=== PATIENT | male | born 1990 | race Two or more races ===

== ENCOUNTER 2024-12-31 15:45 | Emergency (ER) | payer MEDICAID, SELFPAY ==
[2024-12-31 15:46] VITALS: BMI 29.7
[2024-12-31 16:05] VITALS: BP 160/84; PULSE 80; RESP 18; TEMP 37.1; O2SAT 97
--- NOTE | 2024-12-31 16:25 | EDNOTE_ITS ---
ED Male Genitalurinary RME/HPI General Chief complaint: Urogenital-Male Stated complaint: PAIN WITH URINATION, SWELLING TO PENIS Time Seen by Provider: 12/31/24 16:22 Source: patient Arrival date/time: 12/31/24 15:45 34-year-old male with no known medical history presents to the emergency room with a chief complaint of a possible spider bite to the urethra x 1 hour ago Mode of arrival: ambulatory Limitations: no limitations Related Data Previous Rx's ?Medication ?Instructions ?Recorded amoxicillin 875 mg-potassium 1 tab PO BID 7 days #14 t abs 12/31/24 clavulanate 125 mg tablet Allergies Allergy/AdvReac Type Severity Reaction Status Date / Time No Known Allergies Allergy Verified 12/31/24 15:48 Review of Systems Review of Systems Systems Reviewed: All systems reviewed, normal except as documented Constitutional Constitutional: Reports system reviewed and no additional complaints, except as documented, Denies fatigue, Denies fever(s), Denies headache(s) and Denies weakness Eyes Eyes: Reports system reviewed and no additional complaints, except as documented, Denies blurry vision and Denies change in vision ENT Ears, Nose, Mouth, and Throat: Reports system reviewed and no additional complaints, except as documented, Denies otalgia, Denies headache(s), Denies nasal congestion, Denies throat swelling and Denies vertigo Cardiovascular Cardiovascular: Reports system reviewed and no additional complaints, except as documented, Denies chest pain, Denies dyspnea and Denies dyspnea on exertion Respiratory Respiratory: Reports system reviewed and no additional complaints, except as documented, Denies chest congestion, Denies cough, Denies dyspnea, Denies dyspnea on exertion and Denies wheezing Gastrointestinal Gastrointestinal: Reports system reviewed and no additional complaints, except as documented, Denies abdominal pain, Denies cramping, Denies nausea and Denies vomiting Genitourinary Genitourinary: Reports system reviewed and no additional complaints, except as documented, Denies dysuria and Denies hematuria Musculoskeletal Musculoskeletal: Reports system reviewed and no additional complaints, except as documented and Denies back pain Integumentary/Breasts Skin/Breast: Reports system reviewed and no additional complaints, except as documented and Denies wounds Neurologic Neurologic: Reports system reviewed and no additional complaints, except as documented, Denies confusion, Denies headache(s), Denies lack of coordination, Denies vertigo and Denies weakness Psychiatric Psychiatric: Reports system reviewed and no additional complaints, except as documented, Denies anxiety, Denies confusion, Denies depression, Denies paranoia, Denies suicidal ideation and Denies tactile hallucinations Endocrine Endocrine: Reports system reviewed and no additional complaints, except as documented and Denies fatigue Hematologic/Lymphatic Hematologic/Lymphatic: Reports system reviewed and no additional complaints, except as documented and Denies lymphadenopathy Allergic/Immunologic Allergic/Immunologic: Reports system reviewed and no additional complaints, except as documented, Denies throat swelling, Denies urticaria and Denies wheezing Past Medical History Social History SMOKING STATUS: Current some day smoker ED Exam General Limitations: Present no limitations General appearance: Present alert and in no apparent distress Head Head exam: Present atraumatic Eye Eye exam: Present normal appearance, PERRL and EOMI ENT ENT exam: Present normal exam, normal oropharynx and mucous membranes moist Neck Neck exam: Present normal inspection, full ROM and trachea midline Chest Chest inspection: Present normal inspection and symmetric chest wall rise Respiratory Respiratory exam: Present normal lung sounds bilaterally Cardiovascular Cardiovascular exam: Present regular rate, normal rhythm and normal heart sounds Abdominal Exam Abdominal exam: Present soft and normal bowel sounds Expanded Exam image: 2 1. No evidence of any erythema, cellulitis, warmth to the touch, or any evidence of any infection to the head of the penis Extremities Exam Extremities exam: Present normal inspection and full ROM Back Exam Back exam: Present normal inspection and full ROM Neurological Exam Neurological exam: Present alert, oriented X3 and CN II-XII intact Psychiatric Psychiatric exam: Present normal affect and normal mood Skin Skin exam: Present warm, dry, intact and normal color Course Quality Measures none Vital Signs Vital signs: Vital Signs Temperature 98.7 F 12/31/24 16:05 Pulse Rate 80 12/31/24 16:05 Respiratory Rate 18 12/31/24 16:05 Blood Pressure 160/84 H 12/31/24 16:05 Pulse Oximetry (%) 97 12/31/24 16:05 Oxygen Delivery Method Room Air 12/31/24 16:05 Urogenital - Male MDM Narrative MDM Narrative:: 34-year-old male with no known medical history presents to the emergency room with a chief complaint of a possible spider bite to the urethra x 1 hour ago Patient is hemodynamically stable and in no apparent distress. Patient is afebrile nontachycardic nontachypneic Physical examination shows no erythema no warmth or no evidence of any infection to the head of the penis. Patient states he does not feel anything at this time but states he found a spider inside his pants. Patient denies any dysuria or any other problems. Antibiotics were sent to the patient prophylactically. Patient was discharged and educated to follow-up with primary care provider in the next 24 to 48 hours and return to the emergency room for any evidence of worsening signs or symptoms Patient data External records reviewed:: [facility] previous records Clinical information provided by:: patient Social determinants that could affect healthcare access:: none Patient has the following chronic illnesses:: No chronic illness How is presenting disease/condition affected by chronic disease/condition?: no chronic disease Evaluation data The following diagnostics were reviewed and interpreted by me:: lab results and radiology exam(s) Lab and/or radiology exams considered but not ordered:: Labs and radiology exams considered and ordered Interpretation Summary: N/A Medications / Prescriptions Medications or Prescriptions considered but not ordered:: Rx given Medication administrations:: Rx given Consultations Consultation(s) initiated? (list below): No Diagnosis Urogenital Male Differential Diagnosis: other (Spider bite/insect bite/contact dermatitis/balanitis) Most likely diagnosis given after review of the tests above:: Spider bite Admission Indicated Admission indicated?: not indicated Admission Request Was there a request for admission?: No Disposition Plan Disposition Plan: Discharge Discharge Attestation Discharge Attestation: The patient and all family members were given an opportunity to ask questions and understood the discharge instructions. Discharge instructions specifically effects, indications for sooner follow up or return to the emergency department, and the expected course of current diagnosis. Patient condition: Stable Discharge Plan Plan Patient Disposition: HOME (Self Care) Discharge Disposition comment: Stable Prescriptions/Referrals Prescriptions/Med Rec: New amoxicillin-pot clavulanate 875-125 mg tablet 1 tab PO BID 7 Days Qty: 14 0RF Problem List Clinical Impression: Insect bite Patient/Caregiver Discharge Instructions Education Materials: ED Insect Bite Additional Instructions: Por favor, consulte con menjivar m?dico de cabecera en las pr?ximas 24 a 48 horas. Se enviaron antibi?ticos a menjivar farmacia; rec?jalos y t?melos seg?n lo indicado. Si observa cualquier evidencia de empeoramiento de los signos o s?ntomas, regrese a la nicki de emergencias de inmediato. Print Language: Guyanese Stand Alone Forms: [facility] Award Info., Work/School Release, Patient Portal Info Letter PA/SENIOR VICE PRESIDENT & GENERAL COUNSEL Supervising Physician PA/SENIOR VICE PRESIDENT & GENERAL COUNSEL Supervising Physician: Dr. Oconnor
== END 2024-12-31 17:00 | disposition home or self-care (01) ==
PROVIDERS: Emergency Provider Family Medicine
DX: S30.862A Insect bite (nonvenomous) of penis, initial encounter (principal); W57.XXXA Bitten or stung by nonvenomous insect and other nonvenomous arthropods, initial encounter
CPT/HCPCS: 99281